=== PATIENT | female | born 1985 | race Caucasian/White ===

== ENCOUNTER 2017-05-27 01:35 | Emergency (ER) | payer SELFPAY ==
[~2017-05-27] VITALS: Ht 157.5 cm; Wt 113.4 kg
[~2017-05-27 01:35] MED LIST: ALBU0.0912 IH
[2017-05-27 01:49] VITALS: BP 122/90
--- NOTE | 2017-05-27 02:00 | NUR ---
TO ER BED 7
--- NOTE | 2017-05-27 02:07 | NUR ---
Patient being evaluated by physician at bedside.
[2017-05-27] MEDS ORDERED: FLUORESCEIN OPTH STRIP 1 MG OP ONE (02:10)
[2017-05-27] MEDS ORDERED: ACETAMINOPHEN/CODEINE 300/30MG 1 TAB PO ONE (02:10)
[2017-05-27] MEDS ORDERED: TETRACAINE 0.5% OPTH SOL 2 ML BTL OP ONE (02:10)
--- NOTE | 2017-05-27 02:10 | NUR ---
PATIENT PRESENTS TO ED WITH C/O BOTH EYES SWOLLEN AND RED AFTER FALLING ASLEEP WITH CONTACTS IN. . PT DENIES N/V/D; SKIN IS PINK/WARM/DRY; AAOX4 WITH EVEN AND STEADY GAIT; LUNGS CLEAR BL; HR EVEN AND REGULAR; PT DENIES ANY FEVER, CP, SOB, OR COUGH AT THIS TIME; PATIENT STATES PAIN OF 10/10 AT THIS TIME; VSS; PATIENT POSITIONED FOR COMFORT; HOB ELEVATED; BEDRAILS UP X2; BED DOWN. ER MD MADE AWARE OF PT STATUS.
[2017-05-27] MEDS ORDERED: TETRACAINE 0.5% OPTH SOL 2 ML BTL ONE (02:14)
[2017-05-27] MEDS ORDERED: KETOROLAC 30 MG/ML VIAL IM ONE (02:25)
[2017-05-27 03:30] VITALS: BP 126/71
--- NOTE | 2017-05-27 03:30 | NUR ---
Patient discharged with v/s stable. Written and verbal after care instructions given and explained. Patient verbalized understanding. Ambulatory with steady gait. All questions addressed prior to discharge. Advised to follow up with PMD.
--- NOTE | 2017-05-27 03:43 | NUR ---
Note undone in EDM - 05/27/17 at 0344 by JULIO CÉSAR PATIENT PRESENTS TO ED WITH C/O BOTH EYES SWOLLEN AND RED AFTER FALLING ASLEEP WITH CONTACTS IN. . PT DENIES N/V/D; SKIN IS PINK/WARM/DRY; AAOX4 WITH EVEN AND STEADY GAIT; LUNGS CLEAR BL; HR EVEN AND REGULAR; PT DENIES ANY FEVER, CP, SOB, OR COUGH AT THIS TIME; PATIENT STATES PAIN OF 10/10 AT THIS TIME; VSS; PATIENT POSITIONED FOR COMFORT; HOB ELEVATED; BEDRAILS UP X2; BED DOWN. ER MADE AWARE OF PT STATUS.
== END 2017-05-27 02:07 | disposition home or self-care (01) ==
LOC: MED 01:35
DX: H10.33 Unspecified acute conjunctivitis, bilateral (principal); J45.909 Unspecified asthma, uncomplicated; E11.9 Type 2 diabetes mellitus without complications
CPT/HCPCS: 96372; 99284; J1885

== ENCOUNTER 2018-01-30 20:08 | Emergency (ER) | payer MEDICAID ==
[~2018-01-30] VITALS: Ht 157.5 cm; Wt 113.4 kg
--- NOTE | 2018-01-30 20:14 | NUR ---
PT.AMBULATE DTO ER MADDY
[2018-01-30 20:16] VITALS: BP 136/85
--- NOTE | 2018-01-30 20:24 | NUR ---
32Y/F PT. PRESENTS TO ED WITH C/O GEN RASH X3 DAYS. PT. ALSO STATES COUGH X 1 WK. HX. ASTHMA. AAO X4, AMBULATORY WITH STEADY GAIT. RESPIRATIONS ROOM AIR, EVEN AND UNLABORED. C/O COUGH. GENERALIZED RASH NOTED. VSS, ER PA MADE AWARE OF PT. STATUS.
[2018-01-30] MEDS ORDERED: DEXAMETHASONE 10 MG/ML VIAL IM ONE (20:35)
--- NOTE | 2018-01-30 20:35 | NUR ---
Patient being evaluated by ALANNA at bedside.
[2018-01-30 21:03] VITALS: BP 125/74
--- NOTE | 2018-01-30 21:03 | NUR ---
Patient discharged with v/s stable. Written and verbal after care instructions given and explained. Patient alert, oriented and verbalized understanding of instructions. Ambulatory with steady gait. All questions addressed prior to discharge. ID band removed. Patient advised to follow up with PMD. Rx of PREDNISONE 50 MG, ATARAX 50 MG, ALBUTEROL 90MCG/ACTUATION given. Patient educated on indication of medication including possible reaction and side effects. Opportunity to ask questions provided and answered.
== END 2018-01-30 21:03 | disposition home or self-care (01) ==
LOC: MED 20:08
DX: J98.01 Acute bronchospasm (principal); L50.9 Urticaria, unspecified
CPT/HCPCS: 96372; 99283; J1100

== ENCOUNTER 2018-05-12 00:14 | Emergency (ER) | payer MEDICAID ==
[~2018-05-12] VITALS: Ht 157.5 cm; Wt 115.7 kg
[2018-05-12 00:16] VITALS: BP 153/96
--- NOTE | 2018-05-12 00:20 | NUR ---
PT AMBULATED TO BED 8
--- NOTE | 2018-05-12 00:25 | NUR ---
PT BIB FRIEND W/C/O BUMP TO L UPPER ARM. PT STATES SHE BUMPED HER ARM 2 DAYS AGO AND IT DID NOT BLEED BUT IT BRUISED UP AND THE BUMP HAS NOT GONE AWAY. PT STATES SHE HAS 8/10 PAIN THAT FEELS LIKE TINGLING AND RADIATES TO THE SHOULDER AND HAND. PT AAOX4, ON ROOM AIR. NO S/S OF DISTRESS NOTED. PT DENIES TAKING ANY MEDICATIONS BEFORE COMING. PMH ASTHMA. NKA.
--- NOTE | 2018-05-12 00:42 | NUR ---
Dr. Alvarenga evaluating patient at bedside.
[2018-05-12] MEDS ORDERED: ASPIRIN 325 MG TAB PO ONE (00:50)
--- NOTE | 2018-05-12 01:27 | NUR ---
Patient discharged BY DR. LONG with v/s stable. Written and verbal after care instructions given and explained. Patient alert, oriented and verbalized understanding of instructions. Ambulatory with steady gait. All questions addressed prior to discharge. ID band removed. Patient advised to follow up with PMD. Rx ASPRIN 325 MG of given. Patient educated on indication of medication including possible reaction and side effects. Opportunity to ask questions provided and answered.
[2018-05-12 01:28] VITALS: BP 135/78
== END 2018-05-12 01:27 | disposition home or self-care (01) ==
LOC: MED 00:14
DX: D68.59 Other primary thrombophilia (principal); E11.9 Type 2 diabetes mellitus without complications; J45.909 Unspecified asthma, uncomplicated
CPT/HCPCS: 99283

== ENCOUNTER 2019-01-13 20:34 | Emergency (ER) | payer MEDICAID ==
[~2019-01-13] VITALS: Ht 157.5 cm; Wt 120.2 kg
[2019-01-13 21:06] VITALS: BP 116/85
--- NOTE | 2019-01-13 21:09 | NUR ---
PT AMBULATED TO BED 10 WITH VSS.
--- NOTE | 2019-01-13 21:24 | NUR ---
PT BIB SELF CO RASH TO CHEST AND BACK X 2 DAYS WITH ITCHING. DENIES PAIN. PT STATES THIS HAPPENS TWICE A YEAR DUE TO STRESS. STATES SHE IS UNEMPLOYED AND LOOKING FOR WORK. CONFIRMS HX OF ASTHMA. DENIES RX AT HOME. DENIES ALLERGIES.
[2019-01-13] MEDS ORDERED: methylPREDNISolone SS 125 MG in WATER STERILE 2 ML IM ONE (21:50)
[2019-01-13 22:30] VITALS: BP 133/89
--- NOTE | 2019-01-13 22:32 | NUR ---
Patient discharged with v/s stable. Written and verbal after care instructions given and explained. Patient alert, oriented and verbalized understanding of instructions. Ambulatory with steady gait. All questions addressed prior to discharge. ID band removed. Patient advised to follow up with PMD. Rx of BENADRYL AND PREDNISONE given. Patient educated on indication of medication including possible reaction and side effects. Opportunity to ask questions provided and answered.
== END 2019-01-13 22:32 | disposition home or self-care (01) ==
LOC: MED 20:34
DX: R21 Rash and other nonspecific skin eruption (principal); J45.909 Unspecified asthma, uncomplicated; E11.9 Type 2 diabetes mellitus without complications; Z79.899 Other long term (current) drug therapy
CPT/HCPCS: 96372; 99283; J2930

== ENCOUNTER 2019-04-03 20:47 | Emergency (ER) | payer MEDICAID ==
[~2019-04-03] VITALS: Ht 157.5 cm; Wt 121.1 kg
--- NOTE | 2019-04-03 20:49 | NUR ---
CALLED PT FROM LOBBY, NO RESPONSE, LWBS
[2019-04-03 21:01] VITALS: BP 125/75
--- NOTE | 2019-04-03 21:04 | NUR ---
PT AMBULATED BACK OUT TO [facility]
--- NOTE | 2019-04-03 22:10 | NUR ---
PT BIB DAUGHTER C/O LEFT ARM RASH. PT STATES RASH STARTED X3 DAYS AGO, STATES SHE HAS HAD SAME RASH 2 TIMES BEFORE AND IT USUALLY HAPPENS WHEN SHE IS UNDER ALOT OF STRESS; 0/10 PAIN AND THIS TIME, +PRURITIS. --RASH HAS UNDEFINED BORDERS, JOSE R VESICLES. PMH: ASTHMA
--- NOTE | 2019-04-04 00:20 | NUR ---
DR. MANZANARES BEDSIDE EVALUATING PT
[2019-04-04] MEDS ORDERED: methylPREDNISolone SS 125 MG in WATER STERILE 2 ML IM ONE (00:25)
[2019-04-04 00:43] VITALS: BP 126/70
== END 2019-04-04 00:42 | disposition home or self-care (01) ==
LOC: MED 20:47
DX: R21 Rash and other nonspecific skin eruption (principal); J45.909 Unspecified asthma, uncomplicated; Z79.899 Other long term (current) drug therapy
CPT/HCPCS: 96372; 99283; J2930

== ENCOUNTER 2019-04-12 16:13 | Emergency (ER) | payer MEDICAID ==
[~2019-04-12] VITALS: Ht 157.5 cm; Wt 117.7 kg
[2019-04-12 16:19] VITALS: BP 134/77
--- NOTE | 2019-04-12 16:40 | NUR ---
33 Y FEMALE BIB SELF C/O RASH X 2 DAYS. RASH OVER ARMS, NECK, CHEST, AND BACK. PT REPORTS TEMP OF 99 AT HOME AND TOOK TYLENOL WITH CODIENE 1 HOUR AGO. - N/V. NO FEVER AT HTIS TIME. PT HAD GASTRIC SLEEVE SURGERY ON 04/09 AT [facility]. PT SKIN REDDENED. PT TACHY AT 104. AA0X4. BED IS DOWN ,LOCKED, BED RAILX 1, ERMD TO SEE PT. MEDHX:ASTHMA
[2019-04-12] MEDS ORDERED: diphenhydrAMINE 50 MG/ML VIAL IM ONE (16:50)
[2019-04-12] MEDS ORDERED: methylPREDNISolone SS 125 MG/2 ML VIAL IM ONE (16:50)
[2019-04-12 17:16] VITALS: BP 127/69
--- NOTE | 2019-04-12 17:17 | NUR ---
Patient discharged with v/s stable. Written and verbal after care instructions given and explained. Patient alert, oriented and verbalized understanding of instructions. Ambulatory with steady gait. All questions addressed prior to discharge. ID band removed. Patient advised to follow up with PMD. Rx of PREDNISON,BENADRYL given. Patient educated on indication of medication including possible reaction and side effects. Opportunity to ask questions provided and answered.
== END 2019-04-12 17:17 | disposition home or self-care (01) ==
LOC: MED 16:13
DX: T41.45XA Adverse effect of unspecified anesthetic, initial encounter (principal); J45.909 Unspecified asthma, uncomplicated; Z79.899 Other long term (current) drug therapy; Y92.89 Other specified places as the place of occurrence of the external cause
CPT/HCPCS: 96372; 99283; J1200; J2930

== ENCOUNTER 2019-04-19 19:04 | Emergency (ER) | payer MEDICAID ==
[~2019-04-19] VITALS: Ht 157.5 cm; Wt 113.9 kg
[2019-04-19 19:06] VITALS: BP 138/76
--- NOTE | 2019-04-19 19:17 | NUR ---
PT AMBULATED TO BED 1
--- NOTE | 2019-04-19 19:27 | NUR ---
PT C/O PAIN ON SURGERY SIGHT, P/S GASTRIC SLEEVE SURGERY ON March. PT HAS SOME REDNESS ON THE SKIN DUE TO STABLES IRRITATION ON THE SURGERY SIGHT. NO DRAINAGE NOTED. MINIMAL SWELLING. DENIES N/V/D; SKIN IS PINK/WARM/DRY; PT DENIES ANY FEVER, CP, SOB, OR COUGH AT THIS TIME; PATIENT STATES PAIN OF 5/10 AT THIS TIME; VSS; PATIENT POSITIONED FOR COMFORT; HOB ELEVATED; BEDRAILS UP X1; BED DOWN. ER MD MADE AWARE OF PT STATUS.
[2019-04-19 20:09] VITALS: BP 130/75
== END 2019-04-19 20:09 | disposition home or self-care (01) ==
LOC: MED 19:04
DX: Z48.01 Encounter for change or removal of surgical wound dressing (principal); J45.909 Unspecified asthma, uncomplicated; Z79.899 Other long term (current) drug therapy
CPT/HCPCS: 81002; 81025; 99283

== ENCOUNTER 2019-04-23 07:58 | Emergency (ER) | payer MEDICAID ==
[~2019-04-23] VITALS: Ht 157.5 cm; Wt 110.3 kg
[2019-04-23 08:02] VITALS: BP 129/70
--- NOTE | 2019-04-23 08:11 | NUR ---
PATIENT AMBULATED TO BED 12
--- NOTE | 2019-04-23 08:22 | NUR ---
Patient being evaluated by DR KAUR at bedside.
--- NOTE | 2019-04-23 08:31 | NUR ---
PT TO ED WITH REQUEST FOR SUTURE REMOVAL/CHECK TO LOWER ABD S/P GASTRIC SLEEVE SURGERY X 2 WEEKS. MILD REDESS NOTED TO INCISION, NO OBVIOUS S/S OF INFECTION NOTED. NO DRAINAGE NOTED. PT PLACED INTO BED, PENDING MD PRITCHARD.
--- NOTE | 2019-04-23 08:34 | NUR ---
STAPLE REMOVAL DONE BY DR KAUR. PATIENT TOLERATED PROCEDURE WELL.
[2019-04-23 08:43] VITALS: BP 129/70
== END 2019-04-23 08:43 | disposition home or self-care (01) ==
LOC: MED 07:58
DX: Z48.02 Encounter for removal of sutures (principal); J45.909 Unspecified asthma, uncomplicated; Z79.899 Other long term (current) drug therapy; Z98.84 Bariatric surgery status
CPT/HCPCS: 99281

== ENCOUNTER 2019-07-19 18:27 | Emergency (ER) | payer MEDICAID ==
[~2019-07-19] VITALS: Ht 157.5 cm; Wt 104.3 kg
[2019-07-19 18:30] VITALS: BP 134/86
[2019-07-19] MEDS ORDERED: methylPREDNISolone SS 40 MG in WATER STERILE 1 ML IM ONE (19:25)
[2019-07-19 19:44] VITALS: BP 124/75
== END 2019-07-19 19:44 | disposition home or self-care (01) ==
LOC: MED 18:27
DX: R21 Rash and other nonspecific skin eruption (principal); L29.9 Pruritus, unspecified; J45.909 Unspecified asthma, uncomplicated; Z98.890 Other specified postprocedural states; Z79.51 Long term (current) use of inhaled steroids
CPT/HCPCS: 96372; 99283; J2920; Q0163

== ENCOUNTER 2019-08-04 13:58 | Emergency (ER) | payer MEDICAID ==
[~2019-08-04] VITALS: Ht 161.3 cm; Wt 98.9 kg
[2019-08-04 14:09] VITALS: BP 116/74
--- NOTE | 2019-08-04 14:10 | NUR ---
Lois anna in [facility] - 08/04/19 at 1514 by [email or web address] JANELLE MICHELE BEDSIDE
--- NOTE | 2019-08-04 14:12 | NUR ---
PT TO BED 6 WITH STEADY GAIT
--- NOTE | 2019-08-04 14:15 | NUR ---
JANELLE MARIA AT BEDSIDE
[2019-08-04] MEDS ORDERED: PANTOPRAZOLE 40 MG TABEC PO ONE (14:20)
[2019-08-04] MEDS ORDERED: DEXAMETHASONE 10 MG/ML VIAL IM ONE (14:20)
[2019-08-04] MEDS ORDERED: diphenhydrAMINE 50 MG CAP PO ONE (14:20)
--- NOTE | 2019-08-04 14:29 | NUR ---
PT C/O BUMPY RASH ON NECK AND CHEST AFTER SEATBELT AT WORK ON SKIN. DENIES PAIN. PT STATES RASH IS ITCHY. DENIES DISCHARGE. RR EVEN, UNLABORED. NO FURTHER COMPLAINTS. RESTING IN BED, CALM AND PLEASANT MEDHX: ASTHMA ALLERGIES: DENIES
[2019-08-04 15:00] VITALS: BP 120/75
--- NOTE | 2019-08-04 15:00 | NUR ---
Patient discharged with v/s stable. Written and verbal after care instructions given and explained. Patient alert, oriented and verbalized understanding of instructions. Ambulatory with steady gait. All questions addressed prior to discharge. ID band removed. Patient advised to follow up with PMD. Rx of PREDNISONE, HYDROCORTISONE, DIPHENHYDRAMINE HYDROCHLORIDE given. Patient educated on indication of medication including possible reaction and side effects. Opportunity to ask questions provided and answered.
== END 2019-08-04 15:00 | disposition home or self-care (01) ==
LOC: MED 13:58
DX: L25.9 Unspecified contact dermatitis, unspecified cause (principal); J45.909 Unspecified asthma, uncomplicated; Z79.899 Other long term (current) drug therapy
CPT/HCPCS: 96372; 99283; J1100; Q0163

== ENCOUNTER 2019-08-31 20:18 | Emergency (ER) | payer MEDICAID ==
[~2019-08-31] VITALS: Ht 157.5 cm; Wt 98.0 kg
[2019-08-31 21:21] VITALS: BP 134/84
--- NOTE | 2019-08-31 21:24 | NUR ---
PT TRIAGED, SENT BACK TO LOBBY AWAITING FOR BED
[2019-08-31 21:49] LABS: BASOPHILS % (AUTO) 0.6 % (0.0-2.0); EOSINOPHILS # (AUTO) 0.2 K/uL (0-0.4); EOSINOPHILS % (AUTO) 2.5 % (0.0-4.0); HEMATOCRIT 41.2 % (36-48); HEMOGLOBIN 13.9 g/dL (12.0-16.0); LYMPHOCYTES # (AUTO) 2.3 K/uL (2.5-16.5); LYMPHOCYTES % (AUTO) 35.9 % (20.5-51.1); MEAN CORPUSCULAR HEMOGLOBIN 30 pg (27-31); MEAN CORPUSCULAR HGB CONC 34 g/dL (33-37); MEAN CORPUSCULAR VOLUME 89.8 fL (80-94); MONOCYTES # (AUTO) 0.5 K/uL (0.8-1.0); MONOCYTES % (AUTO) 7.6 % (1.7-9.3); NEUTROPHILS # (AUTO) 3.4 K/uL (1.8-7.7); NEUTROPHILS % (AUTO) 53.4 % (42.2-75.2); PLATELET COUNT (AUTO) 226 K/uL (140-450); RED BLOOD CELL COUNT(AUTO) 4.59 MIL/uL (4.20-5.40); RED CELL DISTRIBUTION WIDTH 12.6 % (11.6-13.7); WHITE BLOOD COUNT (AUTO) 6.4 K/uL (4.8-10.8)
[2019-08-31 22:11] LABS: ANION GAP 11.5 (8-16); CARBON DIOXIDE 28.9 mmol/L (21-32); CREATININE 0.7 mg/dL (0.6-1.3); POTASSIUM 3.4 mmol/L (3.5-5.1)
[2019-08-31 22:16] LABS: ALBUMIN 3.7 g/dL (3.4-5.0); TOTAL BILIRUBIN 0.3 mg/dL (0.0-1.0)
--- NOTE | 2019-08-31 22:23 | NUR ---
PT AMBULATED TO ER BED 11
--- NOTE | 2019-08-31 22:30 | NUR ---
34/F PRESENTED TO ED WITH C/O RUQ/R FLANK PAIN, X2 DAYS. REPORTS N/V X1. LBM TODAY, REPORTS CONSTIPATION. ACTIVE BOWEL SOUNDS PRESENT. NO TENDERNESS UPON PALPATION. NO CHANGES IN URINATION. STATES SHE WAS DX WITH KIDNEY STONES IN FEBRUARY BUT HAS NOT FOLLOWED UP SINCE SHE HAD GASTRIC SLEEVE SURGEY. PAIN 8/10 SHARP INTERMITENT. STATES SHE HAS NOT TAKEN OTC MEDS FOR PAIN RELIEF. HX ASTHMA, GASTRIC SLEEVE (03/2019), CHOLELITHIASIS, RX ALBUTEROL INH; DENIES OTC.
[2019-08-31 22:59] LABS: APPEARANCE,URINE SL CLOUDY (CLEAR); BILIRUBIN,URINE NEGATIVE (NEGATIVE); BLOOD, URINE NEGATIVE (NEGATIVE); COLOR,URINE YELLOW (YELLOW); LEUKOCYTE ESTERASE ,URINE NEGATIVE (NEGATIVE); NITRITE, URINE NEGATIVE (NEGATIVE); PH,URINE 5.5 (5.0-9.0); UGLUCOSE NEGATIVE (NEGATIVE)
[2019-08-31] MEDS ORDERED: ONDANSETRON 4 MG ODT PO ONE (23:35)
[2019-08-31] MEDS ORDERED: MORPHINE SULFATE 4 MG/ML SYR IM ONE (23:35)
--- NOTE | 2019-09-01 00:45 | NUR ---
Patient discharged with v/s stable. Written and verbal after care instructions given and explained. Patient alert, oriented and verbalized understanding of instructions. Ambulatory with steady gait. All questions addressed prior to discharge. ID band removed. Patient advised to follow up with PMD. Rx of NAPROSYN, NORCO given. Patient educated on indication of medication including possible reaction and side effects. Opportunity to ask questions provided and answered.
[2019-09-01 01:17] VITALS: BP 109/55
== END 2019-09-01 00:45 | disposition home or self-care (01) ==
LOC: MED 20:18
DX: K80.20 Calculus of gallbladder without cholecystitis without obstruction (principal); R11.10 Vomiting, unspecified; J45.909 Unspecified asthma, uncomplicated; Z98.890 Other specified postprocedural states; Z79.899 Other long term (current) drug therapy; Z98.84 Bariatric surgery status
CPT/HCPCS: 36415; 76705; 80053; 81003; 81025; 83690; 85025; 96372; 99283; J2270; Q0092; Q0162; 99284

== ENCOUNTER 2020-01-05 21:59 | Emergency (ER) | payer BC, MEDICAID ==
[~2020-01-05] VITALS: Ht 157.5 cm; Wt 95.3 kg
[2020-01-05 22:25] VITALS: BP 126/75
--- NOTE | 2020-01-05 22:25 | NUR ---
TO CHAIR B AMBULATORY
--- NOTE | 2020-01-05 22:56 | NUR ---
34/F presents ambulatory to ED, c/o rash on anterior neck/upper chest, x2 days. Pt reports similar s/s before. Pt reports itching, denies pain. Pt awake and alert, skin normal color warm and dry, rr even and unlabored. Hx gastric sleeve,
[2020-01-05] MEDS ORDERED: methylPREDNISolone SS 125 MG/2 ML VIAL IM ONE (23:05)
[2020-01-05 23:28] VITALS: BP 118/74
== END 2020-01-05 23:28 | disposition home or self-care (01) ==
LOC: MED 21:59
DX: R21 Rash and other nonspecific skin eruption (principal); J45.909 Unspecified asthma, uncomplicated; Z79.899 Other long term (current) drug therapy; Z98.0 Intestinal bypass and anastomosis status; Z98.890 Other specified postprocedural states
CPT/HCPCS: 96372; 99283; J2930

== ENCOUNTER 2020-03-13 18:45 | Emergency (ER) | payer BC, MEDICAID ==
[~2020-03-13] VITALS: Ht 157.5 cm; Wt 95.3 kg
[2020-03-13 18:52] VITALS: BP 123/75
[2020-03-13] MEDS ORDERED: FAMOTIDINE 20 MG TAB PO ONE (19:10)
[2020-03-13] MEDS ORDERED: methylPREDNISolone SS 125 MG/2 ML VIAL IM ONE (19:10)
--- NOTE | 2020-03-13 19:20 | NUR ---
34 YEAR OLD FEMALE COMPLAINS OF RASH THROUGHOUT BODY X3 DAYS. VISIBLE BUMPS NOTED, PATIENT STATES THEY ARE ITCHY. NO ERYTHEMA. PATIENT STATES SHE HAS NOT HAD CONTACT WITH ANYTHING ON BODY OR EATEN ANYTHING DIFFERENT. PATIENT STATES SHE GETS THESE RASHES WHEN SHE IS STRESSED. PATIENT DENIES N/V/D OR ANY OTHER COMPLAINTS. PATIENT AOX4, BREATHING EVEN AND UNLABORED, SKIN WARM AND DRY. BED IN LOWEST POSITION, LOCKED, BED RAIL UPX1. ERMD MADE AWARE PMH - ASTHMA ALLERGIES - NKA
[2020-03-13 19:55] VITALS: BP 123/75
--- NOTE | 2020-03-13 19:55 | NUR ---
Patient discharged with v/s stable. Written and verbal after care instructions about rash given and explained. Patient alert, oriented and verbalized understanding of instructions. Ambulatory with steady gait. All questions addressed prior to discharge. ID band removed. Patient advised to follow up with PMD. Rx of benadryl, cortizone, and prednisone given. Patient educated on indication of medication including possible reaction and side effects. Opportunity to ask questions provided and answered.
== END 2020-03-13 19:55 | disposition home or self-care (01) ==
LOC: MED 18:45
DX: R21 Rash and other nonspecific skin eruption (principal); J45.909 Unspecified asthma, uncomplicated
CPT/HCPCS: 96372; 99283; J2930; Q0163

== ENCOUNTER 2020-05-03 09:38 | Emergency (ER) | payer BC, MEDICAID ==
[~2020-05-03] VITALS: Ht 157.5 cm; Wt 93.9 kg
[2020-05-03 09:44] VITALS: BP 111/72
--- NOTE | 2020-05-03 09:51 | NUR ---
34/F BIB SELF C/O LEFT HAND/WRIST/FOREARM PAIN X 2 DAYS. DENIES TRAUMA. MED HX: C SECTION, GASTRIC BY PASS. PATIENT STATES PAIN OF 8/10 AT THIS TIME.PATIENT POSITIONED FOR COMFORT; HOB ELEVATED; BEDRAILS UP X1; BED DOWN. ER MD MADE AWARE OF PT STATUS.
[2020-05-03] MEDS ORDERED: KETOROLAC 60 MG/2 ML VIAL IM ONE (09:55)
--- NOTE | 2020-05-03 10:31 | NUR ---
Dr. Weber is evaluating the patient at bedside.
[2020-05-03 10:41] VITALS: BP 134/84
--- NOTE | 2020-05-03 10:42 | NUR ---
APPLIED WRIST BRACE TO LEFT WRIST WITHOUT ANY ISSUES
== END 2020-05-03 10:43 | disposition home or self-care (01) ==
LOC: MED 09:38
DX: M79.18 Myalgia, other site (principal); Z98.890 Other specified postprocedural states; Z98.84 Bariatric surgery status; Z79.899 Other long term (current) drug therapy
CPT/HCPCS: 29125; 81002; 81025; 96372; 99283; J1885

== ENCOUNTER 2020-08-13 22:47 | Emergency (ER) | payer BC, MEDICAID ==
[~2020-08-13] VITALS: Ht 157.5 cm; Wt 97.1 kg
[2020-08-13 22:56] VITALS: BP 121/60
[2020-08-13] MEDS ORDERED: KETOROLAC 30 MG/ML VIAL IM ONE (23:20)
[2020-08-13 23:47] VITALS: BP 121/60
== END 2020-08-13 23:47 | disposition home or self-care (01) ==
LOC: MED 22:47
DX: M77.8 Other enthesopathies, not elsewhere classified (principal); R21 Rash and other nonspecific skin eruption; Z79.899 Other long term (current) drug therapy
CPT/HCPCS: 29125; 96372; 99283; J1885

== ENCOUNTER 2020-09-27 19:46 | Emergency (ER) | payer MEDICAID ==
[~2020-09-27] VITALS: Ht 162.6 cm; Wt 98.0 kg
[2020-09-27 20:17] VITALS: BP 141/80
--- NOTE | 2020-09-27 20:19 | NUR ---
PT IN TENT.
--- NOTE | 2020-09-27 20:55 | NUR ---
PCR swab collected via [employer] route.
--- NOTE | 2020-09-27 21:05 | NUR ---
Patient discharged with v/s stable. Written and verbal after care instructions given and explained. Patient alert, oriented and verbalized understanding of instructions. Ambulatory with steady gait. All questions addressed prior to discharge. ID band removed. Patient advised to follow up with PMD. Rx of prednisone and loratadine given. Patient educated on indication of medication including possible reaction and side effects. Opportunity to ask questions provided and answered.
== END 2020-09-27 21:05 | disposition home or self-care (01) ==
LOC: MED 19:46
DX: R21 Rash and other nonspecific skin eruption (principal); R03.0 Elevated blood-pressure reading, without diagnosis of hypertension; F17.210 Nicotine dependence, cigarettes, uncomplicated; Z79.899 Other long term (current) drug therapy; Z20.828 Contact with and (suspected) exposure to other viral communicable diseases
CPT/HCPCS: 99283; U0003

== ENCOUNTER 2021-04-01 18:50 | Emergency (ER) | payer MEDICAID ==
[~2021-04-01] VITALS: Ht 157.5 cm; Wt 104.3 kg
[2021-04-01 19:02] VITALS: BP 136/77
--- NOTE | 2021-04-01 19:15 | NUR ---
35 y.o female presents to the ED with complaints of rash for x3 days. pt reports having the pfizer vax x4 days ago and wonders if the rashes are related to the vaccine. pt rashes on the chest. Rashes are mildly scattered on the chest and are not swollen, warm to the touch nor are they itchy. PMH: Asthma Allergies: NKA
--- NOTE | 2021-04-01 19:22 | NUR ---
ERMD at bedside for examination
[2021-04-01] MEDS ORDERED: PRED20TA6 PO (19:31)
[2021-04-01] MEDS ORDERED: HYD1C TP (19:32)
--- NOTE | 2021-04-01 19:46 | NUR ---
patient walked out and is discharged without instructions. ERMD notified and aware.
--- NOTE | 2021-04-01 19:46 | NUR ---
Lois anna in [facility] - 04/01/21 at 1948 by LIZ patient walked out and is discharged without instructions.
== END 2021-04-01 19:48 | disposition home or self-care (01) ==
LOC: MED 18:50
DX: L50.9 Urticaria, unspecified (principal); Z79.899 Other long term (current) drug therapy
CPT/HCPCS: 99281

== ENCOUNTER 2021-05-20 19:50 | Emergency (ER) | payer MEDICAID, OTHER ==
[~2021-05-20] VITALS: Ht 157.5 cm; Wt 104.3 kg
[~2021-05-20 19:50] MED LIST changes: +HYD1C TP; +PRED20TA6 PO
[2021-05-20 20:05] VITALS: BP 138/79
[2021-05-20 20:21] VITALS: BP 111/57
[2021-05-20] MEDS ORDERED: ACET-2619 PO ×2 (21:14→21:26)
[2021-05-20] MEDS ORDERED: PANT40EC PO ×2 (21:14→21:26)
[2021-05-20] MEDS ORDERED: ONDA-24 PO ×2 (21:14→21:26)
[2021-05-21] MEDS ORDERED: HYD1C TP (15:16)
== END 2021-05-20 21:33 | disposition home or self-care (01) ==
LOC: MED 19:50
DX: R07.9 Chest pain, unspecified (principal); R10.13 Epigastric pain; J45.909 Unspecified asthma, uncomplicated; Z79.899 Other long term (current) drug therapy
CPT/HCPCS: 71045; 81025; 93005; 99283

== ENCOUNTER 2021-05-21 14:28 | Emergency (ER) | payer MEDICAID, OTHER ==
[~2021-05-21] VITALS: Ht 157.5 cm; Wt 102.5 kg
[~2021-05-21 14:28] MED LIST changes: +ACET-2619 PO; +ONDA-24 PO; +PANT40EC PO
[2021-05-21 14:30] VITALS: BP 141/82
[2021-05-21] MEDS ORDERED: methylPREDNISolone SS 125 MG/2 ML VIAL IVP ONE (14:50)
--- NOTE | 2021-05-21 15:00 | NUR ---
35 YEAR OLD FEMALE COMPLAINS OF RASH X TODAY. PT STATES RASH IS ITCHY AND OCCURS WHEN STRESSED.PT AOX4, BREATHING EVEN AND UNLABORED, SKIN WARM AND DRY. BED IN LOWEST POSITION, LOCKED, BED RAIL UPX1. PMH - DENIES ALLERGIES - NKA
[2021-05-21] MEDS ORDERED: HYD1C TP (15:16)
[2021-05-21] MEDS ORDERED: methylPREDNISolone SS 125 MG/2 ML VIAL IM ONE (15:30)
[2021-05-21 15:41] VITALS: BP 141/82
--- NOTE | 2021-05-21 15:42 | NUR ---
Patient discharged with v/s stable. Written and verbal after care instructions about atopic dermatitis given and explained. Patient alert, oriented and verbalized understanding of instructions. Ambulatory with steady gait. All questions addressed prior to discharge. ID band removed. Patient advised to follow up with PMD. Rx of hydrocortisone given. Patient educated on indication of medication including possible reaction and side effects. Opportunity to ask questions provided and answered.
== END 2021-05-21 15:42 | disposition home or self-care (01) ==
LOC: MED 14:28
DX: L20.9 Atopic dermatitis, unspecified (principal); J45.909 Unspecified asthma, uncomplicated; Z79.899 Other long term (current) drug therapy
CPT/HCPCS: 96372; 99283; J2930

== ENCOUNTER 2021-07-16 22:33 | Emergency (ER) | payer OTHER, MEDICAID ==
[~2021-07-16] VITALS: Ht 157.5 cm; Wt 97.5 kg
[2021-07-16 22:45] VITALS: BP 128/78
--- NOTE | 2021-07-16 22:48 | NUR ---
TO LOBBY A/W BED AMBULATORY
--- NOTE | 2021-07-16 23:00 | NUR ---
SEEN AND EXAMINED BY ES
[2021-07-16] MEDS ORDERED: BENC TP (23:26)
[2021-07-16 23:30] VITALS: BP 128/78
--- NOTE | 2021-07-16 23:30 | NUR ---
Patient discharged with v/s stable. Written and verbal after care instructions given and explained. Patient alert, oriented and verbalized understanding of instructions. Ambulatory with steady gait. All questions addressed prior to discharge. ID band removed. Patient advised to follow up with PMD. Rx of BENADRYL CREAM given. Patient educated on indication of medication including possible reaction and side effects. Opportunity to ask questions provided and answered.
== END 2021-07-16 23:30 | disposition home or self-care (01) ==
LOC: MED 22:33
DX: R21 Rash and other nonspecific skin eruption (principal); L29.9 Pruritus, unspecified; J45.909 Unspecified asthma, uncomplicated
CPT/HCPCS: 99282

== ENCOUNTER 2021-11-28 18:56 | Emergency (ER) | payer OTHER, MEDICAID ==
[~2021-11-28] VITALS: Ht 160 cm; Wt 104.3 kg
[~2021-11-28 18:56] MED LIST changes: +BENC TP; +ONDA-188 PO; -ONDA-24 PO
[2021-11-28 19:08] VITALS: BP 121/61
--- NOTE | 2021-11-28 19:46 | NUR ---
EXAMINING PT IN TRIAGE.
[2021-11-28] MEDS ORDERED: PRED20TA5 PO (19:57)
[2021-11-28] MEDS ORDERED: DIPH25TA53 PO (19:57)
[2021-11-28 20:07] VITALS: BP 121/61
--- NOTE | 2021-11-28 20:07 | NUR ---
Patient discharged with v/s stable. Written and verbal after care instructions given and explained. Patient alert, oriented and verbalized understanding of instructions. Ambulatory with steady gait. All questions addressed prior to discharge. ID band removed. Patient advised to follow up with PMD. Rx of PREDNISONE AND BENADRYL given. Patient educated on indication of medication including possible reaction and side effects. Opportunity to ask questions provided and answered.
== END 2021-11-28 20:07 | disposition home or self-care (01) ==
LOC: MED 18:56
DX: O99.712 Diseases of the skin and subcutaneous tissue complicating pregnancy, second trimester (principal); L23.9 Allergic contact dermatitis, unspecified cause; J45.909 Unspecified asthma, uncomplicated; Z3A.26 26 weeks gestation of pregnancy; Z79.899 Other long term (current) drug therapy
CPT/HCPCS: 99283

== ENCOUNTER 2022-02-25 20:22 | Emergency (ER) | payer OTHER, MEDICAID ==
[~2022-02-25] VITALS: Ht 157.5 cm; Wt 112.0 kg
[~2022-02-25 20:22] MED LIST changes: +DIPH25TA53 PO; +PRED20TA5 PO
[2022-02-25 20:42] VITALS: BP 142/75
--- NOTE | 2022-02-25 20:49 | NUR ---
pt to lobby
--- NOTE | 2022-02-25 21:18 | NUR ---
called pt no answer at this time.
--- NOTE | 2022-02-25 21:21 | NUR ---
ES Alvarenga called for pt- no answer at this time
--- NOTE | 2022-02-25 21:22 | NUR ---
PATIENT LEFT WITHOUT BEING SEEN BY DR. LONG. NO FURTHER CARE PROVIDED FOR PATIENT.
== END 2022-02-25 21:18 | disposition left against medical advice (07) ==
LOC: MED 20:22
DX: L50.9 Urticaria, unspecified (principal); Z53.21 Procedure and treatment not carried out due to patient leaving prior to being seen by health care provider

== ENCOUNTER 2022-03-07 20:03 | Emergency (ER) | payer OTHER, MEDICAID ==
[~2022-03-07] VITALS: Ht 160 cm; Wt 105.2 kg
[2022-03-07 20:38] VITALS: BP 134/74
--- NOTE | 2022-03-07 20:43 | NUR ---
pt sent to lobby.
[2022-03-07 22:29] LABS: BASOPHILS % (AUTO) 0.6 % (0.0-2.0); EOSINOPHILS # (AUTO) 0.3 K/uL (0-0.4); EOSINOPHILS % (AUTO) 3.1 % (0.0-4.0); HEMOGLOBIN 11.4 g/dL (12.0-16.0); LYMPHOCYTES % (AUTO) 23.3 % (20.5-51.1); MEAN CORPUSCULAR HEMOGLOBIN 25 pg (27-31); MEAN CORPUSCULAR HGB CONC 32 g/dL (33-37); MEAN CORPUSCULAR VOLUME 77.7 fL (80-94); MONOCYTES # (AUTO) 0.7 K/uL (0.8-1.0); MONOCYTES % (AUTO) 8.3 % (1.7-9.3); NEUTROPHILS # (AUTO) 5.5 K/uL (1.8-7.7); NEUTROPHILS % (AUTO) 64.7 % (42.2-75.2); PLATELET COUNT (AUTO) 320 K/uL (140-450); RED BLOOD CELL COUNT(AUTO) 4.64 MIL/uL (4.20-5.40); RED CELL DISTRIBUTION WIDTH 16.6 % (11.6-13.7); WHITE BLOOD COUNT (AUTO) 8.5 K/uL (4.8-10.8)
--- NOTE | 2022-03-07 22:30 | NUR ---
pt ambulated to bed 03
[2022-03-07 22:46] LABS: ALBUMIN 3.4 g/dL (3.4-5.0); ANION GAP 11.3 (8-16); CREATININE 0.7 mg/dL (0.6-1.3); POTASSIUM 3.3 mmol/L (3.5-5.1); TOTAL BILIRUBIN 0.3 mg/dL (0.0-1.0)
[2022-03-07 22:48] LABS: PROTHROMBIN TIME 9.9 secs (10.8-13.4)
[2022-03-07 23:07] LABS: APPEARANCE,URINE CLEAR (CLEAR); BILIRUBIN,URINE NEGATIVE (NEGATIVE); BLOOD, URINE 3+ (NEGATIVE); COLOR,URINE YELLOW (YELLOW); LEUKOCYTE ESTERASE ,URINE TRACE (NEGATIVE); NITRITE, URINE NEGATIVE (NEGATIVE); UGLUCOSE NEGATIVE (NEGATIVE)
[2022-03-07 23:27] LABS: RBC,URINE 0-5 /HPF (0-5); WBC,URINE 20-60 /HPF (0-5)
--- NOTE | 2022-03-07 23:45 | NUR ---
PT SITTING QUIETLY ON BED. ON PHONE AND AWAKE
[2022-03-08] MEDS ORDERED: NITR100C7 PO (00:38)
--- NOTE | 2022-03-08 00:45 | NUR ---
36 y/o F BIB SELF FOR ABDOMINAL FLUID LEAKING. PT STATES THAT THIS IS HER 4TH AND WAS WITHOUT COMPLICATIONS BUT NOTICES FLUID LEAKING LAST NIGHT. PT STATES IT WAS A REDDISH BROWN DISCHARGE. PT STATES NO PAIN BUT NOTICED THERE WAS A PART OF THAT DID NOT HAVE STITCHES. PT STATES NO PAIN ,JUST DISCOMFORT PT DENIES N/F/V/D/SOB/CHEST PAIN. PMH:NONE RX: NONE ALLERGES: NONE
[2022-03-08 01:35] VITALS: BP 120/78
--- NOTE | 2022-03-08 01:35 | NUR ---
Patient discharged with v/s stable. Written and verbal after care instructions given and explained. Patient alert, oriented and verbalized understanding of instructions. Ambulatory with steady gait. All questions addressed prior to discharge. ID band removed. Patient advised to follow up with PMD. Rx of MACROBID given. Opportunity to ask questions provided and answered.
--- NOTE | 2022-03-08 01:48 | NUR ---
The patient's care was reviewed and supervised by Lauren Domínguez RN.
== END 2022-03-08 01:35 | disposition home or self-care (01) ==
LOC: MED 20:03
DX: T81.31XA Disruption of external operation (surgical) wound, not elsewhere classified, initial encounter (principal); N39.0 Urinary tract infection, site not specified; G89.18 Other acute postprocedural pain; J45.909 Unspecified asthma, uncomplicated; Z79.899 Other long term (current) drug therapy; Z98.890 Other specified postprocedural states; Y83.9 Surgical procedure, unspecified as the cause of abnormal reaction of the patient, or of later complication, without mention of misadventure at the time of the procedure; Y92.89 Other specified places as the place of occurrence of the external cause
CPT/HCPCS: 36415; 71045; 80053; 81001; 83605; 85025; 85610; 85730; 87040; 87086; 93005; 99285; Q0092